=== PATIENT | male | born 1970 | race Caucasian/White ===

== ENCOUNTER 2016-08-12 10:26 | Day surgery (SDC) | payer OTHER ==
[2016-08-07 11:07] VITALS: BMI 19.3
[~2016-08-12 10:26] MED LIST: DEXAMETHASONE SOD PHOSPHATE 10 MG/ML 1 ML VIAL IV ONE; HEPARIN SODIUM,PORCINE 5,000 UNIT/ML 1 ML VIAL SQ ONE; LACTATED RINGERS 1,000 ML IV SCH; MIDAZOLAM 2 MG/2 ML VIAL IV PRN; ceFAZolin 2 GM in SODIUM CHLORIDE 0.9% 100 ML IVPB ONE
[2016-08-12 10:49] VITALS: RESP 16
[2016-08-12] MEDS ORDERED: LIDOCAINE 1% 20 ML VIAL (10MG/ML) FOR IV START INTRADERMA ONE (11:08)
[2016-08-12] MEDS: ONDANSETRON 4 MG/2 ML VIAL IVP ONE ×2 (11:10→14:03)
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
[2016-08-12] MEDS ORDERED: LIDOCAINE 1% INJ 10MG/ML (20 ML MDV) ONE (11:52)
[2016-08-12] MEDS ORDERED: ROCURONIUM BROMIDE 10 MG/ML 10 ML VIAL IV ONE (11:52)
[2016-08-12] MEDS ORDERED: GLYCOPYRROLATE 0.2 MG/ML 2 ML VIAL ONE (11:52)
[2016-08-12] MEDS ORDERED: MIDAZOLAM 2 MG/2 ML VIAL ONE (11:52)
[2016-08-12] MEDS ORDERED: PHENYLEPHRINE-0.9% NACL SYG 1 MG/10 ML SYRINGE ONE (11:52)
[2016-08-12] MEDS ORDERED: NEOSTIGMINE 1 MG/ML 10 ML VIAL ONE (11:52)
[2016-08-12] MEDS ORDERED: SUCCINYLCHOLINE CHLORIDE 100 MG/5 ML SYR IV ONE (11:52)
[2016-08-12] MEDS ORDERED: fentaNYL (PF) 50 MCG/ML 2 ML AMP ONE (11:52)
[2016-08-12] MEDS ORDERED: HYDROmorphone (PF) 1 MG/ML ONE (11:52)
[2016-08-12] MEDS ORDERED: BUPIVACAIN-EPI 0.25%-1:200,000 30 ML VIAL SQ ONE ×4 (12:40→13:03)
--- NOTE | 2016-08-12 13:15 | P.OP ---
Date of Procedure: 08/12/16 Preoperative Diagnosis: Left inguinal hernia Postoperative Diagnosis: Left internal hernia Procedure(s) Performed: Laparoscopic robotic-assisted repair of left internal hernia Anesthesia: CONOR Surgeon: Keith Espinosa Estimated Blood Loss (ml): 5 Pathology: none sent Condition: stable Disposition: PACU Description of Procedure: he patient's placed on the operating table in the supine position. The patient received general anesthesia. The patient's abdomen was prepped and draped in usual sterile fashion. The skin was anesthetized 1% local Xylocaine at the incision sites. Using an 11 blade a skin incision was made at the umbilicus. The fascia was grasped with a Adriana and then the peritoneal cavity was entered with the Veress needle. Position of the Veress needle was confirmed with a positive drop test. After adequate insufflation a 5 mm trocar was placed into the peritoneal cavity. The Laparoscope was placed the peritoneal cavity. And a robotic 8 mm trocar was placed in the right lateral position and then another 8 mm robotic trochars placed in the left lateral position. The original 5 mm trocar was exchanged for a 12 mm trocar. The patient was placed in reverse Trendelenburg and then the patient was docked to the robot. Next the peritoneum over top of the hernia was incised and then using blunt and sharp dissection and electrocautery the hernia sac was dissected free from the floor of the inguinal canal. The hernia sac was completely reduced into the peritoneal cavity. And then using the Pro solar system designer mesh the hernia was repaired. The peritoneum was then sutured with 20V lock suture. The patient was then undocked the robot. The needle was withdrawn from the peritoneal cavity. The umbilical trocar site was closed with 0 Ethibond suture. The skin was closed interrupted 3-0 Monocryl suture. Dermabond dressing was applied. Patient was sent to recovery in stable condition.
[2016-08-12] MEDS: HYDROmorphone 1 MG/ML 1 ML SYRINGE IVP PRN ×2 (14:03→14:12)
[2016-08-12 14:06] VITALS: TEMP 96.8
[2016-08-12] MEDS ORDERED: HYDROcodone/APAP 7.5-325MG 1 EACH TAB PO ONE (15:28)
[2016-08-12 15:49] VITALS: BP 112/61; PULSE 78
== END 2016-08-12 16:23 | disposition home or self-care (01) ==
LOC: OR 10:26
PROVIDERS: ATTEND Surgery
DX: K40.90 Unilateral inguinal hernia, without obstruction or gangrene, not specified as recurrent (principal); I25.119 Atherosclerotic heart disease of native coronary artery with unspecified angina pectoris; H91.90 Unspecified hearing loss, unspecified ear; K21.9 Gastro-esophageal reflux disease without esophagitis; F12.90 Cannabis use, unspecified, uncomplicated; E78.5 Hyperlipidemia, unspecified; I25.2 Old myocardial infarction; J44.9 Chronic obstructive pulmonary disease, unspecified; Z95.5 Presence of coronary angioplasty implant and graft; F17.200 Nicotine dependence, unspecified, uncomplicated; Z79.02 Long term (current) use of antithrombotics/antiplatelets; Z79.82 Long term (current) use of aspirin; Z79.891 Long term (current) use of opiate analgesic; Z79.899 Other long term (current) drug therapy
CPT/HCPCS: 49650; S2900; 93005

== ENCOUNTER → 2017-06-15 | Outpatient (CLI) | payer OTHER ==
[2017-06-15 14:00] LABS: Blood Urea Nitrogen 9 mg/dL (9-20); Non-African American GFR(MDRD) >60 (>60 ml/min/1.73 sqM)
== END | disposition home or self-care (01) ==
LOC: LABWHC1 12:32
PROVIDERS: ATTEND Psychiatry & Neurology Neurology
DX: R51 Headache (principal)
CPT/HCPCS: 36415; 82565; 84520

== ENCOUNTER → 2019-07-25 | Outpatient (CLI) | payer OTHER ==
--- NOTE | 2019-07-26 09:20 | XR ---
EXAMINATION TYPE: XR knee limited LT DATE OF EXAM: 07/25/2019 COMPARISON: 02/03/2013 tibia and fibula HISTORY: Chronic knee pain TECHNIQUE: 2 view left knee FINDINGS: Medullary dmitri is present within the proximal tibia. Prior hardware has been in the proximal tibia. Joint space appears preserved. No joint effusion is evident. No acute fractures are identified. Old f racture of the proximal tibia is evident. IMPRESSION: 1. No acute osseous abnormality 2 view left knee
--- NOTE | 2019-07-26 09:21 | XR ---
EXAMINATION TYPE: XR ankle complete LT DATE OF EXAM: 07/25/2019 COMPARISON: None HISTORY: Chronic knee and ankle pain TECHNIQUE: Three-view left ankle FINDINGS: Hardware is within the distal ankle. The ankle mortise appears intact. Soft tissues are nor mal. No acute fractures are identified. IMPRESSION: 1. No acute osseous abnormality.
== END | disposition home or self-care (01) ==
LOC: RADXRMAIN 15:58
PROVIDERS: ATTEND Family Medicine
DX: M25.562 Pain in left knee (principal); M25.572 Pain in left ankle and joints of left foot

== ENCOUNTER → 2019-08-15 | Outpatient (CLI) | payer OTHER ==
--- NOTE | 2019-08-15 15:01 | MR ---
EXAMINATION TYPE: MR lumbar spine wo con DATE OF EXAM: 08/15/2019 COMPARISON: None HISTORY: Low back pain, displacement of disc TECHNIQUE: Multiplanar, multisequence images of the lumbar spine were acquired. L1-L2: Normal disc appearance without desiccation. No herniation, protrusion or disc bulging. No ca nal stenosis is present. Foramina are patent bilaterally. L2-L3: Normal disc appearance without desiccation. No herniation, protrusion or disc bulging. No ca nal stenosis is present. Foramina are patent bilaterally. L3-L4: Normal disc appearance without desiccation. No herniation, protrusion or disc bulging. No ca nal stenosis is present. Foramina are patent bilaterally. L4-L5: Normal disc appearance without desiccation. No herniation, protrusion or disc bulging. No ca nal stenosis is present. Foramina are patent bilaterally. L5-S1: Minimal circumferential posterior disc bulge contacts anterior thecal sac, circumferential ext ension toward the right may contact the proximal S1 nerve root. There is some facet arthropathy rock e present. Lumbar segments are intact. No paraspinal masses are identified. Conus medullaris has a normal appe arance. Lumbar vertebral bodies show preserved height and alignment. Some loss of disc signal L5-S1 c ompatible disc desiccation. There is only mild spondylosis present at the lower lumbar spine. No evid ent spinal stenosis or significant foraminal encroachment. Paraspinal musculature shows some fatty re placement. IMPRESSION: Mild degenerative disc disease. Fatty replacement of the paraspinal musculature is indeterminate.
== END | disposition home or self-care (01) ==
LOC: RADMRIMAIN 08:47
PROVIDERS: ATTEND Neurological Surgery
DX: M51.36 Other intervertebral disc degeneration, lumbar region (principal)
CPT/HCPCS: 72148

== ENCOUNTER → 2020-03-13 | Outpatient (CLI) | payer OTHER ==
--- NOTE | 2020-03-13 08:18 | MR ---
EXAMINATION TYPE: MR shoulder RT wo con DATE OF EXAM: 03/13/2020 COMPARISON: NONE HISTORY: Pain in right shoulder since recent fall injury one month earlier. TECHNIQUE: Multiplanar, multisequence imaging of the right shoulder is performed without contrast. FINDINGS: Exam noted suboptimal as patient unable to hold still for images. Rotator Cuff: Some increased signal throughout the supraspinatus and infraspinatus tendons without de finitive tear. Subscapularis tendon shows increased signal and surrounding fluid with some thickening . Dictator cuff muscle bulk shows some fat replaced areas on T1-weighted images less well pronounced on T2 weighted images. Acromioclavicular Joint: Moderate to severe narrowing with moderate spurring. Loss of underlying fat plane coronal image 15 series 301. Mass effect on the supraspinatus muscle bulk sagittal image 8 seri es 501. Glenohumeral Joint: High positioning of humeral head with moderate to severe narrowing. Moderate-size d joint effusion. No significant spurring. Labrum: The labrum appears grossly intact given limitation of non-arthrogram study. Biceps Tendon: The long head of biceps is in normal location within bicipital groove. Bone marrow signal: No focal abnormal marrow signal is appreciated. Other: No additional significant abnormality is appreciated. IMPRESSION: Suboptimal study without definitive rotator cuff or labral tear. Moderate to severe degen erative changes somewhat pronounced for patient's chronologic age as detailed above are felt present. Underlying impingement noted.
== END | disposition home or self-care (01) ==
LOC: RADMRIMAIN 07:29
PROVIDERS: ATTEND Nurse Practitioner Adult Health
DX: M19.011 Primary osteoarthritis, right shoulder (principal)

== ENCOUNTER → 2021-12-03 | Outpatient (CLI) | payer OTHER | END | disposition home or self-care (01) | LOC: RADECHMAIN 13:37 | PROVIDERS: ATTEND Family Medicine | DX: Z53.9 Procedure and treatment not carried out, unspecified reason (principal) ==

== ENCOUNTER → 2021-12-03 | Outpatient (CLI) | payer OTHER | END | disposition home or self-care (01) | LOC: RADCTMAIN 13:39 | PROVIDERS: ATTEND Family Medicine | DX: Z53.9 Procedure and treatment not carried out, unspecified reason (principal) ==

== ENCOUNTER → 2021-12-23 | Outpatient (CLI) | payer OTHER | LOC: CPPFTMAIN 10:23 | PROVIDERS: ATTEND Family Medicine | DX: J44.9 Chronic obstructive pulmonary disease, unspecified (principal); F17.200 Nicotine dependence, unspecified, uncomplicated | CPT/HCPCS: 94060; 94726; 94729 ==

== ENCOUNTER 2022-07-11 20:07 | Inpatient (IN) | payer OTHER ==
[2022-07-11] MEDS ORDERED: methylPREDNISolone SOD SUCCI 125 MG/2 ML VIAL IV STA (20:23)
[2022-07-11] MEDS ORDERED: SODIUM CHLORIDE 0.9% 1,000 ML IV STA (20:23)
[2022-07-11] MEDS ORDERED: IPRATROPIUM-ALBUTEROL 3 ML NEB INHALATION STA (20:24)
[2022-07-11] MEDS ORDERED: ALBUTEROL NEB (CONC) 2.5 MG/0.5 ML INHALATION STA (20:24)
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
--- NOTE | 2022-07-11 20:46 | XR ---
EXAMINATION TYPE: XR chest 2V DATE OF EXAM: 07/11/2022 COMPARISON: 12/03/2021 HISTORY: Difficulty breathing TECHNIQUE: 2 views FINDINGS: There is pulmonary emphysema. There is coarse reticular interstitial infiltrate in the mid and lower lung monique. Heart size is normal. No heart failure. No pleural effusion. IMPRESSION: Bullous pulmonary emphysema. There is coarse interstitial pneumonia which is new compared to old exam.
[2022-07-11] MEDS ORDERED: PNEUMONIA PROTOCOL UTILIZED 1 EACH MISC PO PRN ×2 (20:49→22:45)
[2022-07-11] MEDS ORDERED: AZITHROMYCIN 500 MG in SODIUM CHLORIDE 0.9% 250 ML IVPB STA (20:49)
[2022-07-11 21:06] LABS: Basophils # (A) 0.1 k/uL (0-0.2); Basophils % (A) 1 %; Eosinophils % (A) 0 %; HGB 16.1 gm/dL (13.0-17.5); Lymphocytes # (A) 1.4 k/uL (1.0-4.8); Lymphocytes % (A) 16 %; MCH 31.3 pg (25.0-35.0); MCHC 35.8 g/dL (31.0-37.0); MCV 87.3 fL (80.0-100.0); Mean Platelet Volume 8.7; Monocytes # (A) 0.7 k/uL (0-1.0); Monocytes % (A) 8 %; Neutrophils % (A) 70 %; Platelet Count 145 k/uL (150-450); RBC 5.15 m/uL (4.30-5.90); WBC 8.6 k/uL (3.8-10.6)
[2022-07-11 21:19] LABS: ALT 64 U/L (4-49); AST 90 U/L (17-59); African American GFR (CKD) >90 (>60 ml/min/1.73 sqM); Albumin 3.9 g/dL (3.5-5.0); Alkaline Phosphatase 113 U/L (38-126); Anion Gap 7 mmol/L; Blood Urea Nitrogen 10 mg/dL (9-20); Calcium 8.4 mg/dL (8.4-10.2); Carbon Dioxide 33 mmol/L (22-30); Chloride 98 mmol/L (98-107); Glucose 105 mg/dL (74-99); INR 0.9 (<1.2); Magnesium 2.3 mg/dL (1.6-2.3); Non-African American GFR(CKD) >90 (>60 ml/min/1.73 sqM); Potassium 3.8 mmol/L (3.5-5.1); Prothrombin Time 9.3 sec (9.0-12.0); Sodium 138 mmol/L (137-145); Total Protein 7.4 g/dL (6.3-8.2)
[2022-07-11] MEDS ORDERED: SODIUM CHLORIDE 0.9% 1,200 ML IV ONE (22:19)
[2022-07-11] MEDS ORDERED: ACETAMINOPHEN TAB 325 MG TAB PO PRN (22:45)
[2022-07-11] MEDS ORDERED: ONDANSETRON 4 MG/2 ML VIAL IVP PRN (22:45)
[2022-07-11] MEDS ORDERED: MELATONIN 3 MG TABLET PO PRN (22:45)
[2022-07-11] MEDS ORDERED: BENZONATATE 100 MG CAP PO PRN (22:45)
[2022-07-11] MEDS ORDERED: NALOXONE 0.4 MG/ML 1 ML VIAL IVP PRN (22:45)
[2022-07-11] MEDS ORDERED: ACETAMINOPHEN TAB 500 MG TAB PO STA (23:01)
[2022-07-11] MEDS: NICOTINE 14MG/24HR PATCH TRANSDERM SCH (23:08)
--- NOTE | 2022-07-11 23:12 | CT ---
EXAMINATION TYPE: CT chest angio for PE DATE OF EXAM: 07/11/2022 COMPARISON: 02/03/2013 HISTORY: elevated d-dimer CT DLP: 232.5 mGycm Automated exposure control for dose reduction was used. CONTRAST: Performed with IV Contrast, patient injected with 100 mL of Isovue 370. There are 3-D post processed images. There is severe bullous pulmonary emphysema. There is reticular nodular patchy infiltrate in the mid and lower lung monique. There is more coalescent infiltrate and atelectasis right lung base. Heart siz e is normal. No pericardial effusion. No evidence of filling defect in the pulmonary arteries. There are few bilateral bronchial lymph nodes up to 1.5 cm. There are mediastinal paratracheal lymph nodes up to 1.5 cm. Thoracic aorta is intact. No aneurysm or dissection. The thoracic vertebra have fairly normal alignment. There is 15% anterior wedging of T7 vertebra that appears old. IMPRESSION: No evidence of pulmonary embolism. Extensive reticular nodular infiltrates in the lung monique is cons istent with probably fibrosis and some degree of acute pneumonia. Severe pulmonary emphysema. Mediastinal and bronchial adenopathy. Pulmonary infiltrates are increased significantly compared to CT scan of 12/03/2021.
[2022-07-11] MEDS: methylPREDNISolone SOD SUCCI 125 MG/2 ML VIAL IV SCH (23:17)
[2022-07-12] MEDS ORDERED: HEPARIN SODIUM,PORCINE/PF 5,000 UNIT/0.5 ML SYRINGE SQ SCH
[2022-07-12] MEDS: OSELTAMIVIR 75 MG CAP PO SCH ×3 (00:03→21:04)
[2022-07-12] MEDS: SODIUM CHLORIDE 0.9% 1,000 ML IV SCH ×5 (00:04→23:41)
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
[2022-07-12] MEDS: methylPREDNISolone SOD SUCCI 125 MG/2 ML VIAL IV SCH ×4 (05:28→23:40)
[2022-07-12] MEDS: IPRATROPIUM-ALBUTEROL 3 ML NEB INHALATION PRN ×2 (08:38→11:55)
[2022-07-12] MEDS: METOPROLOL TARTRATE 25 MG TAB PO SCH ×2 (09:34→20:57)
[2022-07-12] MEDS: ATORVASTATIN 80 MG TAB PO SCH (09:34)
[2022-07-12] MEDS: AZITHROMYCIN 500 MG TAB PO SCH (09:34)
[2022-07-12] MEDS: ASPIRIN 325 MG TAB PO SCH (09:34)
[2022-07-12] MEDS: GABAPENTIN 300 MG CAP PO SCH ×3 (09:34→20:57)
[2022-07-12] MEDS: HEPARIN SODIUM,PORCINE/PF 5,000 UNIT/0.5 ML SYRINGE SQ SCH ×3 (09:34→23:40)
[2022-07-12] MEDS: NICOTINE 14MG/24HR PATCH TRANSDERM SCH ×2 (09:34→09:36)
--- NOTE | 2022-07-12 10:25 | P.PN ---
Subjective Progress Note Date: 07/12/22 Principal diagnosis: hypoxic Hospital Course: 52-year-old male with history of coronary artery disease status post stents and COPD presenting with 1 week of dyspnea. He has also been having URI symptoms. In the ED, he was found to be hypoxic, influenza A positive, elevated d-dimer, CTA showed no acute PE but showed diffuse fibrosis and inflammation. Pulmo nology consulted. Currently on bronchodilators, steroids, IV ceftriaxone as well as Tamiflu. Subjective: Patient seen and examined at bedside. No acute events overnight. He claims that his shortness of breath has improved since coming to the hospital. He denies any chest pain, abdominal pain, lightheadedness, nausea, vomiting, diarrhea, constipation, or urinary complaints. Pertinent positives and negatives as discussed above, a complete review of systems was performed and all other systems are negative. Vitals Signs Reviewed. General: nontoxic, no distress, appears at stated age Derm: warm, dry Head: atraumatic, normocephalic, symmetric Eyes: EOMI, no lid lag, anicteric sclera Mouth: no lip lesion, mucus membranes moist Cardiovascular: S1S2 reg, no murmur Lungs: Diffuse end expiratory wheezing, supplemental oxygen Abdominal: soft, nontender to palpation, no guarding, no appreciable organomegaly Ext: no gross muscle atrophy, no edema, no contractures Neuro: CN II-XI grossly intact, no focal neuro deficits Psych: Alert, oriented, appropriate affect Assessment and Plan: Acute hypoxic respiratory failure Acute COPD exacerbation Acute viral pneumonia with influenza a Possible superimposed bacterial pneumonia Elevated d-dimer -Continue bronchodilators, steroids, IV antibiotics, Tamiflu -Imaging not show any acute PE -Tylenol for fever, cough with precautions -Pulmonology consulted -Pro calcitonin pending Mild transaminitis -Possibly in the setting of viral infection History of CAD -Resumed home medications Nicotine dependence -smoking cessation counseling -Nicotine patch DVT ppx: Subcu heparin Code status: Full Code Anticipated discharge place: Home Anticipated discharge time: 1-2 days Objective - Vital Signs Vital signs: Vital Signs Temp 98.4 F 07/12/22 06:00 Pulse 89 07/12/22 09:32 Resp 18 07/12/22 09:32 BP 108/88 07/12/22 09:32 Pulse Ox 93 L 07/12/22 09:32 FiO2 Intake & Output 1207/12/22 07/12/22 18:59 06:59 18:59 Weight 68.039 kg - Labs CBC & Chem 7: 07/11/22 20:57 07/11/22 20:57 Labs: Abnormal Lab Results - Last 24 Hours (Table) 07/11/22 07/11/22 07/11/22 Range/Units 20:32 20:57 20:57 Plt Count 145 L (150-450) k/uL D-Dimer 0.60 H (<0.60) mg/L FEU Carbon Dioxide (22-30) mmol/L Creatinine (0.66-1.25) mg/dL Glucose (74-99) mg/dL AST (17-59) U/L ALT (4-49) U/L Influenza Type A (PCR) Detected A (Not Detectd) 07/11/22 Range/Units 20:57 Plt Count (150-450) k/uL D-Dimer (<0.60) mg/L FEU Carbon Dioxide 33 H (22-30) mmol/L Creatinine 0.43 L (0.66-1.25) mg/dL Glucose 105 H (74-99) mg/dL AST 90 H (17-59) U/L ALT 64 H (4-49) U/L Influenza Type A (PCR) (Not Detectd)
[2022-07-12] MEDS: SYMBICORT 160-4.5 MCG INHALER INHALATION SCH ×2 (11:55→20:42)
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
[2022-07-12] MEDS: ALBUTEROL NEBULIZED 2.5 MG/3 ML INHALATION PRN (23:26)
[2022-07-13] MEDS: methylPREDNISolone SOD SUCCI 125 MG/2 ML VIAL IV SCH ×4 (05:46→23:56)
[2022-07-13] MEDS: ASPIRIN 325 MG TAB PO SCH (08:39)
[2022-07-13] MEDS: AZITHROMYCIN 500 MG TAB PO SCH (08:39)
[2022-07-13] MEDS: HEPARIN SODIUM,PORCINE/PF 5,000 UNIT/0.5 ML SYRINGE SQ SCH ×3 (08:39→23:57)
[2022-07-13] MEDS: OSELTAMIVIR 75 MG CAP PO SCH ×2 (08:39→21:04)
[2022-07-13] MEDS: NICOTINE 14MG/24HR PATCH TRANSDERM SCH (08:39)
[2022-07-13] MEDS: GABAPENTIN 300 MG CAP PO SCH ×3 (08:39→20:36)
[2022-07-13] MEDS: ATORVASTATIN 80 MG TAB PO SCH (08:39)
[2022-07-13] MEDS: METOPROLOL TARTRATE 25 MG TAB PO SCH ×2 (08:39→20:36)
[2022-07-13] MEDS: oxyCODONE-APAP 7.5-325MG 1 EACH TAB PO PRN ×3 (08:57→23:56)
[2022-07-13] MEDS: SYMBICORT 160-4.5 MCG INHALER INHALATION SCH ×2 (09:48→20:14)
[2022-07-13] MEDS: IPRATROPIUM-ALBUTEROL 3 ML NEB INHALATION PRN (09:48)
--- NOTE | 2022-07-13 10:43 | P.PN ---
Subjective Progress Note Date: 07/13/22 Principal diagnosis: hypoxic Hospital Course: 52-year-old male with history of coronary artery disease status post stents and COPD presenting with 1 week of dyspnea. He has also been having URI symptoms. In the ED, he was found to be hypoxic, influenza A positive, elevated d-dimer, CTA showed no acute PE but showed diffuse fibrosis and inflammation. Pulmo nology consulted. Currently on bronchodilators, steroids, as well as Tamiflu. Patient has a normal Pro calcitonin, ceftriaxone discontinued. Subjective: Patient seen and examined at bedside. No acute events overnight. He claims that his shortness of breath has improved since coming to the hospital. He denies any chest pain, abdominal pain, lightheadedness, nausea, vomiting, diarrhea, constipation, or urinary complaints. Pertinent positives and negatives as discussed above, a complete review of systems was performed and all other systems are negative. Vitals Signs Reviewed. General: nontoxic, no distress, appears at stated age Derm: warm, dry Head: atraumatic, normocephalic, symmetric Eyes: EOMI, no lid lag, anicteric sclera Mouth: no lip lesion, mucus membranes moist Cardiovascular: S1S2 reg, no murmur Lungs: CTAB, supplemental oxygen Abdominal: soft, nontender to palpation, no guarding, no appreciable organomegaly Ext: no gross muscle atrophy, no edema, no contractures Neuro: CN II-XI grossly intact, no focal neuro deficits Psych: Alert, oriented, appropriate affect Assessment and Plan: Acute hypoxic respiratory failure Acute COPD exacerbation Acute viral pneumonia with influenza a Elevated d-dimer -Continue bronchodilators, steroids,Tamiflu -Imaging not show any acute PE -Tylenol for fever, cough with precautions -Pulmonology consulted -Pro calcitonin normal, IV antibiotics discontinued Mild transaminitis -Possibly in the setting of viral infection History of CAD -Resumed home medications Nicotine dependence -smoking cessation counseling -Nicotine patch DVT ppx: Subcu heparin Code status: Full Code Anticipated discharge place: Home Anticipated discharge time: 1-2 days Objective - Vital Signs Vital signs: Vital Signs Temp 98.2 F 07/13/22 07:19 Pulse 78 07/13/22 09:59 Resp 15 07/13/22 07:19 BP 101/68 07/13/22 07:19 Pulse Ox 94 L 07/13/22 09:51 FiO2 Intake & Output 07/12/22 07/13/22 07/13/22 18:59 06:59 18:59 Weight 68.039 kg Other: # Voids 1 - Labs CBC & Chem 7: 07/11/22 20:57 07/11/22 20:57 Labs: Microbiology - Last 24 Hours (Table) 07/12/22 08:40 Gram Stain - Preliminary Sputum Sputum Culture - Preliminary 07/11/22 20:40 Blood Culture - Preliminary Blood No Growth after 24 hours 07/11/22 20:55 Blood Culture - Preliminary Blood No Growth after 24 hours
--- NOTE | 2022-07-13 13:12 | P.PN ---
Subjective Progress Note Date: 07/13/22 This is a 52-year-old white male with history of COPD, patient is maintained on bronchodilators at home, however he is not O2 dependent, and he is not prednisone dependent. Patient does not follow up with a software product specialist, here today with 1 week history of cough, cough is productive and yellow phlegm, patient has also been complaining of URI symptoms including fever, congestion, aches and pains, chest x-ray on this evaluation showed evidence of severe emphysema and bilateral infiltrates. His screening for influenza came back positive, patient had influenza A infection. Patient was noted to be hypoxic in the ER, placed on oxygen, placed on bronchodilators, Tamiflu, steroids, I saw the patient in the ER, and I recommended admission. Patient has a [id number] smoking history, has been smoking until a week ago. CT angiogram of the chest showed no evidence of pulmonary embolism, there is definitely some nonspecific lymphadenopathy, and there is some fibrotic changes and most likely the patient has also underlying pneumonia. Patient had a relatively normal CBC WBC count is 8.6. Electrolytes are normal renal profile is normal bicarb is 33. Patient tested negative for influenza B RSV PCR was negative and COVID-19 was negative he did test positive for influenza A. The patient is seen today 07/13/2022 in follow-up on the regular medical floor. He is currently sitting up in bed. Awake and alert in no acute distress. Still has some shortness of breath, cough and congestion. Room air oxygen 87%. Recovered at 94% on 2 L. He is afebrile. Hemodynamically stable. Blood cul tures reveal no growth. Sputum culture pending. Pro-calcitonin 0.08. Influenza A+. He is continued on Tamiflu. Received ceftriaxone with azithromycin. Continue bronchodilators. NicoDerm patch in place. Heparin for DVT prophylaxis. Objective - Vital Signs Vital signs: Vital Signs Temp 98.2 F 07/13/22 07:19 Pulse 78 07/13/22 09:59 Resp 15 07/13/22 07:19 BP 101/68 07/13/22 07:19 Pulse Ox 94 L 07/13/22 09:51 FiO2 Intake & Output 07/12/22 07/13/22 07/13/22 18:59 06:59 18:59 Weight 68.039 kg Other: # Voids 1 - Exam GENERAL EXAM: Alert, pleasant 52-year-old male, on 2 L nasal cannula, comfortable in no apparent distress. HEAD: Normocephalic. EYES: Normal reaction of pupils, equal size. NOSE: Clear with pink turbinates. THROAT: No erythema or exudates. NECK: No masses, no JVD. CHEST: No chest wall deformity. LUNGS: Equal air entry with bilateral scattered rhonchi. CVS: S1 and S2 normal with no audible murmur, regular rhythm. ABDOMEN: No hepatosplenomegaly, normal bowel sounds, no guarding or rigidity. SPINE: No scoliosis or deformity SKIN: No rashes CENTRAL NERVOUS SYSTEM: No focal deficits, tone is normal in all 4 extremities. EXTREMITIES: There is no peripheral edema. No clubbing, no cyanosis. Peripheral pulses are intact. - Labs CBC & Chem 7: 07/11/22 20:57 07/11/22 20:57 Labs: Microbiology - Last 24 Hours (Table) 07/12/22 08:40 Gram Stain - Preliminary Sputum Sputum Culture - Preliminary 07/11/22 20:40 Blood Culture - Preliminary Blood No Growth after 24 hours 07/11/22 20:55 Blood Culture - Preliminary Blood No Growth after 24 hours Assessment and Plan Assessment: Acute hypoxic respiratory failure secondary to acute exacerbation of COPD secondary to acute influenza A infection Acute influenza A infection Doubt underlying superimposed bacterial pneumonia multiple calcitonin 0.08 History of coronary arteriosclerosis Tobacco dependence syndrome Suspect severe underlying COPD/emphysema Plan: The patient was seen and evaluated Still not back to his baseline Continue the current treatment plan Remains on Tamiflu Titrate the FiO2 as tolerated We will continue to follow I have personally seen and examined the patient, performed the documentation and the assessment and plan as written. Number of minutes spent on the visit: 10.
[2022-07-13] MEDS: ALBUTEROL NEBULIZED 2.5 MG/3 ML INHALATION PRN (20:14)
[2022-07-14] MEDS: methylPREDNISolone SOD SUCCI 125 MG/2 ML VIAL IV SCH ×3 (05:59→17:32)
[2022-07-14] MEDS: SYMBICORT 160-4.5 MCG INHALER INHALATION SCH ×2 (08:11→20:49)
[2022-07-14] MEDS: HEPARIN SODIUM,PORCINE/PF 5,000 UNIT/0.5 ML SYRINGE SQ SCH ×3 (10:29→23:46)
[2022-07-14] MEDS: OSELTAMIVIR 75 MG CAP PO SCH ×2 (10:29→22:28)
[2022-07-14] MEDS: NICOTINE 14MG/24HR PATCH TRANSDERM SCH ×2 (10:29→10:58)
[2022-07-14] MEDS: GABAPENTIN 300 MG CAP PO SCH ×3 (10:29→22:28)
[2022-07-14] MEDS: METOPROLOL TARTRATE 25 MG TAB PO SCH ×2 (10:29→22:28)
[2022-07-14] MEDS: ATORVASTATIN 80 MG TAB PO SCH (10:29)
[2022-07-14] MEDS: ASPIRIN 325 MG TAB PO SCH (10:29)
--- NOTE | 2022-07-14 10:44 | P.PN ---
Subjective Progress Note Date: 07/14/22 Principal diagnosis: hypoxic Hospital Course: 52-year-old male with history of coronary artery disease status post stents and COPD presenting with 1 week of dyspnea. He has also been having URI symptoms. In the ED, he was found to be hypoxic, influenza A positive, elevated d-dimer, CTA showed no acute PE but showed diffuse fibrosis and inflammation. Pulmonology consulted. Currently on bronchodilators, steroids, as well as Tamiflu. Patient has a normal Pro calcitonin, ceftriaxone discontinued. Subjective: Patient seen and examined at bedside. No acute events overnight. He continues to have SOB mostly with exertion. He denies any chest pain, abdominal pain, lightheadedness, nausea, vomiting, diarrhea, constipation, or urinary complaints. Pertinent positives and negatives as discussed above, a complete review of systems was performed and all other systems are negative. Vitals Signs Reviewed. General: nontoxic, no distress, appears at stated age Derm: warm, dry Head: atraumatic, normocephalic, symmetric Eyes: EOMI, no lid lag, anicteric sclera Mouth: no lip lesion, mucus membranes moist Cardiovascular: S1S2 reg, no murmur Lungs: bilateral bases fine rales, supplemental oxygen Abdominal: soft, nontender to palpation, no guarding, no appreciable organomegaly Ext: no gross muscle atrophy, no edema, no contractures Neuro: CN II-XI grossly intact, no focal neuro deficits Psych: Alert, oriented, appropriate affect Assessment and Plan: Acute hypoxic respiratory failure Acute COPD exacerbation Acute viral pneumonia with influenza a Elevated d-dimer -Continue bronchodilators, steroids,Tamiflu -Imaging not show any acute PE -Tylenol for fever, cough with precautions -Pulmonology consulted -Pro calcitonin normal, IV antibiotics discontinued -wean O2 Mild transaminitis -Possibly in the setting of viral infection History of CAD -Resumed home medications Nicotine dependence -smoking cessation counseling -Nicotine patch DVT ppx: Subcu heparin Code status: Full Code Anticipated discharge place: Home once patient is weaned off of O2 Anticipated discharge time: 1-2 days Objective - Vital Signs Vital signs: Vital Signs Temp 97.4 F L 07/14/22 00:00 Pulse 81 07/14/22 00:00 Resp 17 07/14/22 00:00 BP 111/78 07/14/22 00:00 Pulse Ox 96 07/14/22 08:11 FiO2 Intake & Output 07/13/22 07/14/22 07/14/22 18:59 06:59 18:59 Other: # Voids 1 - Labs CBC & Chem 7: 07/11/22 20:57 07/11/22 20:57 Labs: Microbiology - Last 24 Hours (Table) 07/12/22 08:40 Gram Stain - Final Sputum Sputum Culture - Final 07/11/22 20:55 Blood Culture - Preliminary Blood No Growth after 48 hours 07/11/22 20:40 Blood Culture - Preliminary Blood No Growth after 48 hours
[2022-07-14] MEDS: oxyCODONE-APAP 7.5-325MG 1 EACH TAB PO PRN ×3 (10:59→23:46)
[2022-07-14] MEDS: ALBUTEROL NEBULIZED 2.5 MG/3 ML INHALATION PRN ×2 (11:42→20:51)
[2022-07-14] MEDS ORDERED: SODIUM CHLORIDE 0.65% NASAL SPRAY 44 ML BTL NASAL PRN (12:43)
--- NOTE | 2022-07-14 14:29 | P.PN ---
Subjective Progress Note Date: 07/14/22 This is a 52-year-old white male with history of COPD, patient is maintained on bronchodilators at home, however he is not O2 dependent, and he is not prednisone dependent. 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 His screening for influenza came back positive, patient had influenza A infection. Patient was noted to be hypoxic in the ER, placed on oxygen, placed on bronchodilators, Tamiflu, steroids, I saw the patient in the ER, and I recommended admission. Patient has a [id number] smoking history, has been smoking until a week ago. CT angiogram of the chest showed no evidence of pulmonary embolism, there is definitely some nonspecific lymphadenopathy, and there is some fibrotic changes and most likely the patient has also underlying pneumonia. Patient had a relatively normal CBC WBC count is 8.6. Electrolytes are normal renal profile is normal bicarb is 33. Patient tested negative for influenza B RSV PCR was negative and COVID-19 was negative he did test positive for influenza A. The patient is seen today 07/13/2022 in follow-up on the regular medical floor. He is currently sitting up in bed. Awake and alert in no acute distress. Still has some shortness of breath, cough and congestion. Room air oxygen 87%. Recovered at 94% on 2 L. He is afebrile. Hemodynamically stable. Blood cul tures reveal no growth. Sputum culture pending. Pro-calcitonin 0.08. Influenza A+. He is continued on Tamiflu. Received ceftriaxone with azithromycin. Continue bronchodilators. NicoDerm patch in place. Heparin for DVT prophylaxis. The patient is seen today 07/14/2022 in follow-up on the regular medical floor. He is currently sitting up at the bedside. Awake and alert in no acute distres s. Currently maintaining O2 saturations in the mid 90s on 2 L/m per nasal cannula. He's been afebrile. Blood culture reveals no growth. Sputum culture revealed no growth. Previous pro calcitonin 0.08. Continued on DuoNeb inhalations, Symbicort, IV Solu-Medrol. He remains on Tamiflu. NicoDerm patch in place. Heparin for DVT prophylaxis. Objective - Vital Signs Vital signs: Vital Signs Temp 97.8 F 07/14/22 14:15 Pulse 64 07/14/22 14:15 Resp 16 07/14/22 14:15 BP 83/54 07/14/22 14:15 Pulse Ox 96 07/14/22 14:15 FiO2 Intake & Output 07/13/22 07/14/22 07/14/22 18:59 06:59 18:59 Other: # Voids 1 - Exam GENERAL EXAM: Alert, 52-year-old male, appears older than stated age, on 2 L nasal cannula, comfortable in no apparent distress. HEAD: Normocephalic. EYES: Normal reaction of pupils, equal size. NOSE: Clear with pink turbinates. THROAT: No erythema or exudates. NECK: No masses, no JVD. CHEST: No chest wall deformity. LUNGS: Equal air entry with bilateral scattered rhonchi. CVS: S1 and S2 normal with no audible murmur, regular rhythm. ABDOMEN: No hepatosplenomegaly, normal bowel sounds, no guarding or rigidity. SPINE: No scoliosis or deformity SKIN: No rashes CENTRAL NERVOUS SYSTEM: No focal deficits, tone is normal in all 4 extremities. EXTREMITIES: There is no peripheral edema. No clubbing, no cyanosis. Peripheral pulses are intact. - Labs CBC & Chem 7: 07/11/22 20:57 07/11/22 20:57 Labs: Microbiology - Last 24 Hours (Table) 07/12/22 08:40 Gram Stain - Final Sputum Sputum Culture - Final 07/11/22 20:55 Blood Culture - Preliminary Blood No Growth after 48 hours 07/11/22 20:40 Blood Culture - Preliminary Blood No Growth after 48 hours Assessment and Plan Assessment: Acute hypoxic respiratory failure secondary to acute exacerbation of COPD secondary to acute influenza A infection Acute influenza A infection Doubt underlying superimposed bacterial pneumonia, pro calcitonin 0.08 History of coronary arteriosclerosis Tobacco dependence syndrome Suspect severe underlying COPD/emphysema Plan: The patient was seen and evaluated Medications reviewed Cleared for discharge from the pulmonary standpoint May need home oxygen for now Complete his course of Tamiflu Continue Symbicort, Spiriva, albuterol Complete a prednisone taper Follow-up in our office in 1 week I have personally seen and examined the patient, performed the documentation and the assessment and plan as written. Number of minutes spent on the visit: 10.
--- NOTE | 2022-07-14 14:29 | P.DS ---
Providers Date of admission: 07/11/22 22:24 Expected date of discharge: 07/14/22 Attending physician: Nghia Amin MD Consults: 07/11/22 22:45 Consult Physician Urgent Consulting Provider: Cole Mccoy Consult Reason/Comments: COPD exacerbation Do you want consulting provider notified?: Yes, Notify in am Primary care physician: Guillermo Helton MD Hospital Course: Discharge Diagnosis: Acute hypoxic respiratory failure Acute COPD exacerbation Acute viral pneumonia with influenza a Elevated d-dimer Mild transaminitis History of CAD Nicotine dependence Hospital Course: 52-year-old male with history of coronary artery disease status post stents and COPD presenting with 1 week of dyspnea. He has also been having URI symptoms. In the ED, he was found to be hypoxic, influenza A positive, elevated d-dimer, CTA showed no acute PE but showed diffuse fibrosis and inflammation. Pulmonology consulted. Patient has a normal Pro calcitonin, ceftriaxone discontinued. Patient being discharged with steroids, bronchodilators and Tamiflu. Patient seen and examined at bedside. Vital signs reviewed and stable. General: nontoxic, no distress, appears at stated age Derm: warm, dry Head: atraumatic, normocephalic, symmetric Eyes: EOMI, no lid lag, anicteric sclera Mouth: no lip lesion, mucus membranes moist Cardiovascular: S1S2 reg, no murmur Lungs: bilateral bases fine rales, supplemental oxygen Abdominal: soft, nontender to palpation, no guarding, no appreciable organomegaly Ext: no gross muscle atrophy, no edema, no contractures Neuro: CN II-XI grossly intact, no focal neuro deficits Psych: Alert, oriented, appropriate affect A total of 36 minutes of time were spent preparing this complex discharge summary. Patient was discharged on 07/14/22 at 14:11. Patient Condition at Discharge: Stable Plan - Discharge Summary Discharge Rx Participant: Yes New Discharge Prescriptions: New predniSONE [Deltasone] 40 mg PO DAILY #4 tab Budesonide-Formot 160-4.5 Mcg [Symbicort 160-4.5 Mcg Inhaler] 2 puff INHALATION RT-BID #1 each Albuterol Inhaler [Ventolin Hfa Inhaler] 1 - 2 puff INHALATION Q6H PRN #1 each PRN Reason: Wheezing Oseltamivir [Tamiflu] 75 mg PO Q12HR #4 cap Continue Atorvastatin [Lipitor] 80 mg PO HS Metoprolol Tartrate [Lopressor] 25 mg PO BID Gabapentin [Neurontin] 600 mg PO TID oxyCODONE HCL/ACETAMINOPHEN [oxyCODONE HCL/ACETAMINOPHEN 7.5-325] 1 tab PO QID PRN PRN Reason: Pain Aspirin EC [Ecotrin Low Dose] 81 mg PO DAILY Tiotropium [place] [Spiriva Handihaler] 1 puff INHALATION RT-DAILY Discharge Medication List Atorvastatin [Lipitor] 80 mg PO HS 07/23/14 [History] Metoprolol Tartrate [Lopressor] 25 mg PO BID 07/23/14 [History] Gabapentin [Neurontin] 600 mg PO TID 08/07/16 [History] oxyCODONE HCL/ACETAMINOPHEN [oxyCODONE HCL/ACETAMINOPHEN 7.5-325] 1 tab PO QID PRN 12/23/21 [History] Aspirin EC [Ecotrin Low Dose] 81 mg PO DAILY 07/12/22 [History] Tiotropium [place] [Spiriva Handihaler] 1 puff INHALATION RT-DAILY 07/12/22 [History] Albuterol Inhaler [Ventolin Hfa Inhaler] 1 - 2 puff INHALATION Q6H PRN #1 each 07/14/22 [Rx] Budesonide-Formot 160-4.5 Mcg [Symbicort 160-4.5 Mcg Inhaler] 2 puff INHALATION RT-BID #1 each 07/14/22 [Rx] Oseltamivir [Tamiflu] 75 mg PO Q12HR #4 cap 07/14/22 [Rx] predniSONE [Deltasone] 40 mg PO DAILY #4 tab 07/14/22 [Rx] Follow up Appointment(s)/Referral(s): Equipment & Supplies,[facility] [NON-STAFF] - As Needed (Call [facility] to arrange delivery of the oxygen concentrator once home. ) Nonstaff,Physician [REFERRING] - 1-2 days Patient Instructions/Handouts: Influenza (DC), COPD (Chronic Obstructive Pulmonary Disease) (DC) Activity/Diet/Wound Care/Special Instructions: Please see your PCP in 1-2 days Discharge Disposition: HOME WITH HOME HEALTH SERVICES
[2022-07-15] MEDS: methylPREDNISolone SOD SUCCI 125 MG/2 ML VIAL IV SCH ×2 (00:16→06:04)
[2022-07-15 02:06] VITALS: RESP 16
[2022-07-15] MEDS: oxyCODONE-APAP 7.5-325MG 1 EACH TAB PO PRN (06:10)
[2022-07-15 07:55] VITALS: BP 116/64; PULSE 61; TEMP 98.3
[2022-07-15] MEDS: ASPIRIN 325 MG TAB PO SCH (08:47)
[2022-07-15] MEDS: ATORVASTATIN 80 MG TAB PO SCH (08:47)
[2022-07-15] MEDS: GABAPENTIN 300 MG CAP PO SCH (08:47)
[2022-07-15] MEDS: METOPROLOL TARTRATE 25 MG TAB PO SCH (08:47)
[2022-07-15] MEDS: OSELTAMIVIR 75 MG CAP PO SCH (08:48)
[2022-07-15] MEDS: HEPARIN SODIUM,PORCINE/PF 5,000 UNIT/0.5 ML SYRINGE SQ SCH (08:48)
[2022-07-15] MEDS: NICOTINE 14MG/24HR PATCH TRANSDERM SCH (08:49)
[2022-07-15] MEDS: SYMBICORT 160-4.5 MCG INHALER INHALATION SCH (09:34)
--- NOTE | 2022-07-15 10:35 | P.DS ---
Providers Date of admission: 07/11/22 22:24 Expected date of discharge: 07/15/22 Attending physician: Nghia Amin MD Consults: 07/11/22 22:45 Consult Physician Urgent Consulting Provider: Cole Mccoy Consult Reason/Comments: COPD exacerbation Do you want consulting provider notified?: Yes, Notify in am Primary care physician: Guillermo Helton MD Hospital Course: Acute hypoxic respiratory failure Acute COPD exacerbation Acute viral pneumonia with influenza a Elevated d-dimer Mild transaminitis History of CAD Nicotine dependence Hospital Course: 52-year-old male with history of coronary artery disease status post stents and COPD presenting with 1 week of dyspnea. He has also been having URI symptoms. In the ED, he was found to be hypoxic, influenza A positive, elevated d-dimer, CTA showed no acute PE but showed diffuse fibrosis and inflammation. Pulmonology consulted. Patient has a normal Pro calcitonin, ceftriaxone discontinued. Patient being discharged with steroids, bronchodilators and Tamiflu. Patient seen and examined at bedside. Vital signs reviewed and stable. General: nontoxic, no distress, appears at stated age Derm: warm, dry Head: atraumatic, normocephalic, symmetric Eyes: EOMI, no lid lag, anicteric sclera Mouth: no lip lesion, mucus membranes moist Cardiovascular: S1S2 reg, no murmur Lungs: bilateral bases fine rales, supplemental oxygen Abdominal: soft, nontender to palpation, no guarding, no appreciable organomegaly Ext: no gross muscle atrophy, no edema, no contractures Neuro: CN II-XI grossly intact, no focal neuro deficits Psych: Alert, oriented, appropriate affect A total of 36 minutes of time were spent preparing this complex discharge summary. Patient was discharged on 07/15/22 at 9:34. Patient Condition at Discharge: Stable Plan - Discharge Summary Discharge Rx Participant: Yes New Discharge Prescriptions: New predniSONE [Deltasone] 40 mg PO DAILY 2 Days #4 tab Oseltamivir [Tamiflu] 75 mg PO Q12HR #4 cap Budesonide-Formot 160-4.5 Mcg [Symbicort 160-4.5 Mcg Inhaler] 2 puff INHALATION BID #10.2 gm Albuterol Inhaler [Ventolin Hfa Inhaler] 2 puff INHALATION Q6H PRN #1 each PRN Reason: Shortness Of Breath Or Wheezing Continue Atorvastatin [Lipitor] 80 mg PO HS Metoprolol Tartrate [Lopressor] 25 mg PO BID Gabapentin [Neurontin] 600 mg PO TID oxyCODONE HCL/ACETAMINOPHEN [oxyCODONE HCL/ACETAMINOPHEN 7.5-325] 1 tab PO QID PRN PRN Reason: Pain Aspirin EC [Ecotrin Low Dose] 81 mg PO DAILY Tiotropium [place] [Spiriva Handihaler] 1 puff INHALATION RT-DAILY Discharge Medication List Atorvastatin [Lipitor] 80 mg PO HS 07/23/14 [History] Metoprolol Tartrate [Lopressor] 25 mg PO BID 07/23/14 [History] Gabapentin [Neurontin] 600 mg PO TID 08/07/16 [History] oxyCODONE HCL/ACETAMINOPHEN [oxyCODONE HCL/ACETAMINOPHEN 7.5-325] 1 tab PO QID PRN 12/23/21 [History] Aspirin EC [Ecotrin Low Dose] 81 mg PO DAILY 07/12/22 [History] Tiotropium [place] [Spiriva Handihaler] 1 puff INHALATION RT-DAILY 07/12/22 [History] Albuterol Inhaler [Ventolin Hfa Inhaler] 2 puff INHALATION Q6H PRN #1 each 07/14/22 [Rx] Budesonide-Formot 160-4.5 Mcg [Symbicort 160-4.5 Mcg Inhaler] 2 puff INHALATION BID #10.2 gm 07/14/22 [Rx] Oseltamivir [Tamiflu] 75 mg PO Q12HR #4 cap 07/14/22 [Rx] predniSONE [Deltasone] 40 mg PO DAILY 2 Days #4 tab 07/14/22 [Rx] Follow up Appointment(s)/Referral(s): Equipment & Supplies,[facility] [NON-STAFF] - As Needed ([facility] will call you prior to delivering the oxygen concentrator early tomorrow. ) Guillermo Helton MD [Primary Care Provider] - 1-2 Days (PLEASE CALL AND SCHEDULE [facility].) Zeb Medina DO [Doctor of Osteopathic Medicine] - 07/31/22 1:15 pm Patient Instructions/Handouts: Albuterol (By breathing), Prednisone (By mouth), Oseltamivir (By mouth), Budesonide/Formoterol (By breathing), How to Stop Smoking (DC), Influenza (DC), Using Oxygen at Home (DC), COPD (Chronic Obstructive Pulmonary Disease) (DC) Activity/Diet/Wound Care/Special Instructions: Please see your PCP in 1-2 days Discharge Disposition: HOME WITH HOME HEALTH SERVICES
--- NOTE | 2022-07-15 20:48 | PN ---
PROGRESS NOTE DATE OF SERVICE: 07/15/2022 SUBJECTIVE: This is a 52-year-old male admitted with a COPD exacerbation. The patient did qualify for home oxygen therapy. He will be discharged home on oxygen therapy. Currently, the patient is doing better. He states that his breathing is much improved. Still a bit short of breath on exertion. The patient continues on appropriate medications including updrafts with albuterol sulfate and ipratropium bromide, Symbicort, and Solu- Medrol. PHYSICAL EXAMINATION: VITAL SIGNS: Current vital signs include temperature 98.3, heart rate 61, respiratory rate 16, blood pressure 116/64 with a mean of 81, and 2 L saturation of 95-96%. GENERAL: Appears in no acute distress. No respiratory distress. HEENT: Grossly unremarkable. Nasal cannula in place. NECK: Supple, full range of motion. No adenopathy. Neck veins are flat. CARDIOVASCULAR: Reveals regular rhythm rate. Heart rate 61. S1, S2 normal. Heart sounds distant. LUNGS: Reveal some mild expiratory rhonchi and wheezes. Breath sounds are improved. No crackles. ABDOMEN: Soft, bowel sounds are heard. EXTREMITIES: Intact. No cyanosis, clubbing, or edema. SKIN: Without rash. NEUROLOGIC: Nonfocal. LABS: Reviewed. Nothing new from today. No recent chest x-ray. Microbiologic studies are all negative. ASSESSMENT: 1. Acute hypoxemic respiratory failure secondary to chronic obstructive pulmonary disease exacerbation, complicated by acute influenza A infection. 2. Acute influenza A infection. 3. Doubt bacterial pneumonia. 4. History of coronary artery disease. 5. Tobacco dependence syndrome. PLAN: The patient could be discharged home today. He does qualify for oxygen therapy at 2 L. Medications are adjusted. The patient will follow up in the office. He will need a complete pulmonary function test. He should complete full 5 days of Tamiflu 75 mg twice a day. Additional recommendations and suggestions are forthcoming. Prognosis is guarded. The patient has not smoked for a week, I hope he can continue to avoid tobacco use. MMODL / IJN: [id number] /
== END 2022-07-15 11:50 | disposition home health service (06) | DRG 193 ==
LOC: EC 20:07 → 3SCARD 22:24 → 4SSUR 07-12 15:10
PROVIDERS: ADMIT Internal Medicine; ATTEND Internal Medicine
PROC: 3E0F7SF Introduction of Other Gas into Respiratory Tract, Via Natural or Artificial Opening (ICD-10-PCS; principal; 2022-07-11)
DX: J10.08 Influenza due to other identified influenza virus with other specified pneumonia (principal); J96.01 Acute respiratory failure with hypoxia; J43.9 Emphysema, unspecified; Z71.6 Tobacco abuse counseling; D64.9 Anemia, unspecified; J12.9 Viral pneumonia, unspecified; D69.6 Thrombocytopenia, unspecified; Z20.822 Contact with and (suspected) exposure to COVID-19; I25.10 Atherosclerotic heart disease of native coronary artery without angina pectoris; F10.20 Alcohol dependence, uncomplicated; F17.210 Nicotine dependence, cigarettes, uncomplicated; E78.5 Hyperlipidemia, unspecified; Z87.828 Personal history of other (healed) physical injury and trauma; F32.A Depression, unspecified; F41.9 Anxiety disorder, unspecified; H91.90 Unspecified hearing loss, unspecified ear; I10 Essential (primary) hypertension; F14.10 Cocaine abuse, uncomplicated; F12.10 Cannabis abuse, uncomplicated; I25.2 Old myocardial infarction; R74.01 Elevation of levels of liver transaminase levels; Z78.9 Other specified health status; Z79.899 Other long term (current) drug therapy; Z79.82 Long term (current) use of aspirin; Z95.5 Presence of coronary angioplasty implant and graft
CPT/HCPCS: 36415; 71046; 71275; 80053; 83605; 83735; 83880; 84145; 84484; 85025; 85379; 85610; 87040; 87070; 87205; 87636; 93005; 94640; 94760; 96361; 96365; 96366; 96367; 96372; 96375; 96376; 99291; 99406

== ENCOUNTER → 2023-01-06 | Outpatient (CLI) | payer OTHER | END | disposition home or self-care (01) | LOC: LABWHC1 11:01 | PROVIDERS: ATTEND Physical Medicine & Rehabilitation Pain Medicine | DX: G71.00 Muscular dystrophy, unspecified (principal) | CPT/HCPCS: 36415; 82550 ==

== ENCOUNTER → 2023-07-06 | Outpatient (CLI) | payer OTHER ==
--- NOTE | 2023-07-12 21:35 | CTL ---
EXAMINATION TYPE: CT Low Dose Lung DATE OF EXAM: 07/06/2023 12:25 PM CLINICAL INDICATION:Male, 53 years old with history of Z12.2 ENCNTR SCREEN FOR MALIGNANT NEOPLASM F17 .210; current smoker, 1/2 pack a day x40 years , history of tobacco use. COMPARISON: CT Low Dose Lung 12/03/2021 TECHNIQUE: CT scan of the chest obtained without contrast from approximately the lung apices through the upper abdomen. Axial, coronal and sagittal reformatted images were obtained. Low dose technique w as utilized for nodule screening purposes. CT DLP: 80.1 mGycm, Automated exposure control for dose reduction was used. CT Contrast: Contrast used: None Oral contrast used: None FINDINGS: Lack of intravenous contrast and low dose technique limits the evaluation of the vascular and soft ti ssue structures. LUNGS: No evidence of focal consolidation, pneumothorax or pleural effusion. There are moderate to se tiara emphysematous changes again seen bilaterally, upper lobe predominant with several large blebs/bu llae bilaterally, near the right lung apex 8.7 cm, and near the left lung apex 8.1 cm. Mild to modera te areas of linear and bandlike fibrotic change appear similar to prior. Nodules: RUL: None RML: None RLL: None TIMBO: None LLL: None AIRWAY: Central airways are patent. Thin linear opacities likely mucous secretions in the distal trac hea. LOWER NECK: No significant findings. HEART AND VASCULATURE: Heart size is stable, upper limits of normal.. Moderate to severe coronary art ann calcifications and/or stents. Moderate aortic calcifications, greatest along the arch and proxim al branch vessels. Aorta appears normal in size, 3.3 cm transverse in its descending segment and 2.4 cm transverse in its descending segment. Poor visualization of the interventricular and interatrial septa, can be seen with anemia. Trace pericardial fluid, without significant effusion. MEDIASTINUM: No gross evidence of adenopathy. SOFT TISSUES/LYMPH NODES: Minimal bilateral gynecomastia. Fatty infiltration of the chest wall muscul ature most pronounced in the paraspinous and pectoralis regions. UPPER ABDOMEN: Slightly heterogeneous liver with no obvious mass by unenhanced CT. Additional calcifi cations of the upper abdominal aorta. MUSCULOSKELETAL: Mild disc degeneration changes are present throughout the thoracolumbar spine. Rede monstration of mild loss of height along the inferior endplate T7 (now sclerotic and chronic in appea yarely) with slightly wedged morphology, consistent with chronic compression fracture. No acute findin gs. IMPRESSION: 1. No clinically significant pulmonary nodules. Overall stable exam. 2. Moderate to severe bilateral pulmonary emphysematous changes with mild/moderate fibrotic change. 3. Moderate to severe coronary arterial calcifications and/or stents. 4. Mild chronic compression fracture T7. CT LUNG RAD AND CT CHEST RECOMMENDATION: Lung-Rad 1 Negative: Continue annual screening with LDCT in 12 months. C Modifier (Personal history of lung cancer?): No. S Modifier (Other clinically significant or potentially significant findings?): Yes (see below). Other significant or potentially significant abnormalities: Coronary arterial calcifications moderat e to severe. Recommend smoking cessation (if current smoker), or continuation of smoking cessation (if prior smoke r). Annual screening for lung cancer with low-dose computed tomography is recommended in adults ages 55 to 77 years who have a 30 pack-year smoking history and currently smoke or have quit within the pa st 15 years. Screening should be discontinued once a person has not smoked for 15 years or develops a health problem that substantially limits life expectancy or the ability or willingness to have curat paresh lung surgery. Lung rads 2021 [email or web address]
== END | disposition home or self-care (01) ==
LOC: RADCTMAIN 12:04
PROVIDERS: ATTEND Family Medicine
DX: Z12.2 Encounter for screening for malignant neoplasm of respiratory organs (principal); F17.210 Nicotine dependence, cigarettes, uncomplicated; I25.10 Atherosclerotic heart disease of native coronary artery without angina pectoris; M48.54XA Collapsed vertebra, not elsewhere classified, thoracic region, initial encounter for fracture; J43.9 Emphysema, unspecified; J84.10 Pulmonary fibrosis, unspecified
CPT/HCPCS: 71271